=== PATIENT | female | born 1975 | race Caucasian/White ===

== ENCOUNTER → 2018-02-12 | Outpatient (CLI) | payer BC, OTHER ==
--- NOTE | 2018-02-13 08:15 | MM ---
Reason for exam: clinical finding. Last mammogram was performed 17 years ago. History: Family history of breast cancer in mother at age 50. Physical Findings: Nurse did not find any significant physical abnormalities on exam. MG Diagnostic Mammo w CAD CLAUDIA Bilateral CC and MLO view(s) were taken. Prior study comparison: February 04, 2001, bilateral diagnostic mammogram. The breast tissue is heterogeneously dense. This may lower the sensitivity of mammography. There is chronic nodularity in the right axilla. There is no discrete abnormality. These results were verbally communicated with the patient and result sheet given to the patient on 02/12/18. ASSESSMENT: Negative, BI-RAD 1 RECOMMENDATION: Routine screening mammogram of both breasts in 1 year.
--- NOTE | 2018-02-13 08:17 | USB ---
Reason for exam: clinical finding. History: Family history of breast cancer in mother at age 50. US Breast BILAT Right breast ultrasound includes all four quadrants, the retroareolar region and axilla. Finding demonstrates a 0.5 x 0.2 x 0.3cm lesion too small to characterize at 8 o'clock, a 0.4 x 0.3 x 0.4cm lesion too small to characterize at 10 o'clock and a 0.5 x 0.3 x 0.7cm mixed lesion at 9 o'clock. Left breast ultrasound includes all four quadrants, the retroareolar region and axilla. Finding demonstrates a 0.7 x 0.3 x 0.6cm mixed lesion at the posterior nipple. These results were verbally communicated with the patient and result sheet given to the patient on 02/12/18. ASSESSMENT: Probably benign, BI-RAD 3 RECOMMENDATION: Ultrasound of both breasts in 6 months. Manage on a clinical basis with regard to breast pain.
== END | disposition home or self-care (01) ==
LOC: RADMAMWWP 14:42
PROVIDERS: ATTEND Family Medicine
DX: N64.4 Mastodynia (principal)
CPT/HCPCS: 77066

== ENCOUNTER → 2018-10-24 | Outpatient (CLI) | payer BC, OTHER ==
--- NOTE | 2018-10-24 08:31 | XR ---
EXAMINATION TYPE: XR thoracic spine 2V DATE OF EXAM: 10/24/2018 CLINICAL HISTORY: pain TECHNIQUE: Frontal, lateral, and swimmer's view of thoracic spine are obtained. COMPARISON: None. FINDINGS: Thoracic spine show satisfactory alignment without evidence of acute fracture or dislocatio n. Vertebral body heights are preserved. Disc spaces are well preserved. Visualized ribs are unrem arkable. IMPRESSION: No acute fracture or dislocation is seen in the thoracic spine. ICD 10 NO FRACTURE, INITIAL EVALUATION
--- NOTE | 2018-10-24 08:32 | XR ---
EXAMINATION TYPE: XR shoulder complete LT DATE OF EXAM: 10/24/2018 CLINICAL HISTORY: pain COMPARISON: NONE TECHNIQUE: Three views of the left shoulder are obtained. FINDINGS: There is no acute fracture/dislocation evident. The acromioclavicular and glenohumeral cassandra int spaces appear within normal limits. The visualized ribs are intact and unremarkable. IMPRESSION: 1. There is no acute fracture or dislocation. ICD 10 NO FRACTURE, INITIAL EVALUATION
== END | disposition home or self-care (01) ==
LOC: RADXRMAIN 08:13
PROVIDERS: ATTEND Internal Medicine
DX: M54.6 Pain in thoracic spine (principal)
CPT/HCPCS: 72070

== ENCOUNTER → 2021-04-27 | Outpatient (CLI) | payer BC, OTHER ==
--- NOTE | 2021-04-29 15:19 | MM ---
Reason for exam: screening (asymptomatic). Last mammogram was performed 1 year and 4 months ago. History: Family history of breast cancer in mother at age 50. Physical Findings: A clinical breast exam by your physician is recommended on an annual basis and results should be correlated with mammographic findings. MG Screening Mammo w CAD Bilateral CC and MLO view(s) were taken. Prior study comparison: December 22, 2019, bilateral MG diagnostic mammo w CAD CLAUDIA. September 10, 2018, bilateral US breast BILAT. The breast tissue is heterogeneously dense. This may lower the sensitivity of mammography. Questionable distortion 3 o'clock left breast versus summation shadow. ASSESSMENT: Incomplete: need additional imaging evaluation, BI-RAD 0 RECOMMENDATION: Special view mammogram of the left breast. (3D) If lesion persists on supplemental views, image directed ultrasound is recommended. [facility] will attempt to contact patient to return for supplemental views and ultrasound if indicated.
== END | disposition home or self-care (01) ==
LOC: RADMAMWWP 15:35
PROVIDERS: ATTEND Family Medicine
DX: Z12.31 Encounter for screening mammogram for malignant neoplasm of breast (principal)
CPT/HCPCS: 77067

== ENCOUNTER → 2021-05-23 | Outpatient (CLI) | payer BC, OTHER ==
--- NOTE | 2021-05-27 12:31 | MM ---
Reason for exam: additional evaluation requested from abnormal screening. Last mammogram was performed 1 month ago. History: Family history of breast cancer in mother at age 50. Physical Findings: Nurse did not find any significant physical abnormalities on exam. MG Work Up Mamm w CAD LT Spot compression CC, spot compression MLO, and LM view(s) were taken of the left breast. Prior study comparison: April 27, 2021, bilateral MG screening mammo w CAD. December 22, 2019, bilateral MG diagnostic mammo w CAD CLAUDIA. The breast tissue is heterogeneously dense. This may lower the sensitivity of mammography. The focal asymmetry becomes less defined on additional views, ultrasound recommended. These results were verbally communicated with the patient and result sheet given to the patient on 05/23/21. ASSESSMENT: Incomplete: need additional imaging evaluation, BI-RAD 0 RECOMMENDATION: Ultrasound of the left breast. (1-5 o'clock)
--- NOTE | 2021-05-27 12:33 | USB ---
Reason for exam: additional evaluation requested from abnormal screening. History: Family history of breast cancer in mother at age 50. US Breast Workup Limited LT Left limited breast ultrasound including focal area of concern, retroareolar and axilla demonstrates a 8 x 3 x 6mm oval, mixed lesion at 4 o'clock versus 5 x 4 x 2mm in 2018. Suspect debris filled cyst. 6 month follow up recommended. These results were verbally communicated with the patient and result sheet given to the patient on 05/23/21. ASSESSMENT: Probably benign, BI-RAD 3 RECOMMENDATION: Ultrasound of the left breast in 6 months.
== END | disposition home or self-care (01) ==
LOC: RADMAMWWP 07:24
PROVIDERS: ATTEND Family Medicine
DX: R92.8 Other abnormal and inconclusive findings on diagnostic imaging of breast (principal)
CPT/HCPCS: 77065

== ENCOUNTER → 2021-11-29 | Outpatient (CLI) | payer BC, OTHER ==
--- NOTE | 2021-11-29 08:36 | USB ---
Reason for exam: follow-up at short interval from prior study. History: Family history of breast cancer in mother at age 50. Physical Findings: Nurse did not find any significant physical abnormalities on exam. US Breast Limited LT Left limited breast ultrasound including focal area of concern, retroareolar and axilla demonstrates a 6 x 3 x 5mm oval, mixed lesion at 4 o'clock, smaller in size and a 4 x 3 x 4mm oval lesion too small to characterize at 5 o'clock. These results were verbally communicated with the patient and result sheet given to the patient on 11/29/21. ASSESSMENT: Probably benign, BI-RAD 3 RECOMMENDATION: Follow-up diagnostic mammogram of both breasts in 6 months. Ultrasound of the left breast in 6 months.
== END | disposition home or self-care (01) ==
LOC: RADUSWWP 07:32
PROVIDERS: ATTEND Family Medicine
DX: R92.8 Other abnormal and inconclusive findings on diagnostic imaging of breast (principal)

== ENCOUNTER → 2024-08-27 | Outpatient (CLI) | payer BC, OTHER ==
--- NOTE | 2024-08-28 10:39 | MM ---
Reason for Exam: Screening (asymptomatic). Last mammogram was performed 1 year(s) and 1 month(s) ago. Patient History: Menarche at age 15. First Full-Term at age 20. Perimenopausal. Mother had breast cancer, age 50. Risk Values: Carolyn 5 year model risk: 1.6%. NCI Lifetime model risk: 15.5%. Prior Study Comparison: 04/27/2021 Bilateral Screening Mammogram, [facility]. 05/23/2021 Left Diagnostic Mammogram, [facility]. 07/12/2023 Bilateral MG screening mammo w CAD, [facility]. Tissue Density: The breasts are heterogeneously dense, which may obscure small masses. Findings: Analyzed By CAD. There appears to be an enlarging nodular focal asymmetry left upper outer quadrant middle depth. Possible obscured smaller area of nodularity subareolar left cc view. Further evaluation recommended for both of these findings. Other areas of asymmetric density are unchanged. Small intramammary lymph node posterior upper outer quadrant right breast is unchanged. Overall Assessment: Incomplete: need additional imaging evaluation, BI-RAD 0 Management: Special View Mammogram of the left breast. Diagnostic Breast Ultrasound of the left breast. . [facility] will attempt to contact patient to return for supplemental views and ultrasound if indicated. [facility], , 08/28/2024 10:36 AM. Electronically signed and approved by: Ester Gong M.D. Radiologist
== END | disposition home or self-care (01) ==
LOC: RADMAMWWP 07:17
PROVIDERS: ATTEND Family Medicine
CPT/HCPCS: 77063; 77067

== ENCOUNTER → 2024-09-03 | Outpatient (CLI) | payer BC, OTHER ==
--- NOTE | 2024-09-03 14:50 | MM ---
Reason for Exam: Additional evaluation requested from abnormal screening. Last screening mammogram was performed less than 1 month ago. Patient History: Menarche at age 15. First Full-Term at age 20. Perimenopausal. Mother had breast cancer, age 50. Risk Values: Carolyn 5 year model risk: 1.6%. NCI Lifetime model risk: 15.5%. Prior Study Comparison: 05/23/2021 Left Diagnostic Mammogram, [facility]. 07/12/2023 Bilateral MG screening mammo w CAD, [facility]. 08/27/2024 Bilateral MG 3D screening mammo w/cad, [facility]. Tissue Density: Left: The breasts are heterogeneously dense, which may obscure small masses. Findings: Analyzed By CAD. The pattern is symmetrical. No suspicious persistent density is evident No suspicious groups of microcalcifications, spiculated or lobular masses, architectural distortion or other secondary signs of malignancy are mammographically apparent. Overall Assessment: Probably benign, BI-RAD 3 Management: Diagnostic Mammogram of the left breast in 6 months. A negative mammogram report should not preclude additional follow up of suspicious palpable abnormalities. Patient should continue monthly self breast exam. A clinical breast exam by your physician is recommended on an annual basis and results should be correlated with mammographic findings. Note on Carolyn scores and lifetime risk: 1. A Carolyn score greater than 3% is considered moderate risk. If this is the case, consider specialist referral to assess eligibility for a risk reducing agent. 2. If overall lifetime risk for the development of breast cancer is 20% or higher, the patient may qualify for future screening with alternating mammogram and breast MRI. [facility], , 09/03/2024 2:47 PM. Electronically signed and approved by: Antonio Santoro D.O. Radiologis
== END | disposition home or self-care (01) ==
LOC: RADMAMWWP 14:22
PROVIDERS: ATTEND Family Medicine
DX: R92.8 Other abnormal and inconclusive findings on diagnostic imaging of breast (principal); R92.333 Mammographic heterogeneous density, bilateral breasts; Z80.3 Family history of malignant neoplasm of breast
CPT/HCPCS: 77061; 77065